=== PATIENT | male | born 1970 | race Caucasian/White ===

== ENCOUNTER 2017-01-26 14:10 | Emergency (ER) | payer SELFPAY | END 2017-01-26 19:00 | disposition left against medical advice (07) | LOC: D.ER 14:10 | DX: S39.92XA Unspecified injury of lower back, initial encounter (principal); X58.XXXA Exposure to other specified factors, initial encounter; Y93.89 Activity, other specified; Y92.89 Other specified places as the place of occurrence of the external cause ==